=== PATIENT | male | born 1985 | race Caucasian/White ===

== ENCOUNTER 2020-01-28 15:10 | Emergency (ER) | payer MEDICAID ==
[~2020-01-28] VITALS: Ht 188 cm; Wt 92.5 kg
[2020-01-28 15:28] VITALS: BP 149/93; Ht 188 cm; Wt 92.5 kg
== END 2020-01-28 19:38 | disposition home or self-care (01) ==
LOC: ED 15:10
DX: S62.002A Unspecified fracture of navicular [scaphoid] bone of left wrist, initial encounter for closed fracture (principal); V00.131A Fall from skateboard, initial encounter; Y93.89 Activity, other specified; Y92.89 Other specified places as the place of occurrence of the external cause; Y99.8 Other external cause status

== ENCOUNTER 2020-04-19 20:28 | Emergency (ER) | payer MEDICAID ==
[~2020-04-19] VITALS: Ht 188 cm; Wt 89.8 kg
[2020-04-19 20:35] VITALS: Ht 188 cm; Wt 89.8 kg
[2020-04-19 21:23] LABS: BASOPHIL % 0.4 % (0-2); PLATELET COUNT 215 x10^3mcL (130-400); RED CELL DISTRIBUTION WIDTH 13.5 % (11.5-14.5)
[2020-04-19 21:47] LABS: ALBUMIN 4.3 g/dL (3.4-5.0); ALKALINE PHOSPHATASE 54 U/L (46-116); ALT/SGPT 28 U/L (16-63); AMYLASE 57 U/L (25-115); AST/SGOT 17 U/L (15-37); BILIRUBIN TOTAL 0.7 mg/dL (0.20-1.00); CARBON DIOXIDE 27.9 mmol/L (21-32); CHLORIDE SERUM 102 mmol/L (98-107); CREATININE SERUM 1.4 mg/dL (0.7-1.3); GFR1 > 60 mL/min; GLUCOSE SERUM 90 mg/dL (74-106); LIPASE 122 IU/L (73-393); POTASSIUM SERUM 3.7 mmol/L (3.5-5.1); SODIUM SERUM 139 mmol/L (136-145); TOTAL PROTEIN, SERUM 8.1 g/dL (6.4-8.2)
[2020-04-19 22:08] VITALS: BP 112/83
== END 2020-04-19 22:08 | disposition home or self-care (01) ==
LOC: ED 20:28
PROVIDERS: Emergency Medicine
DX: E86.0 Dehydration (principal); N28.9 Disorder of kidney and ureter, unspecified; R11.2 Nausea with vomiting, unspecified; R10.816 Epigastric abdominal tenderness
CPT/HCPCS: J1885; J2405; J7030; Q0092